=== PATIENT | female | born 1955 | race Two or more races ===

== ENCOUNTER 2017-02-18 11:49 | Emergency (ER) | payer MEDICAID ==
[~2017-02-18] VITALS: Ht 160 cm; Wt 70.8 kg
[2017-02-18 11:53] VITALS: BP 198/124
== END 2017-02-18 12:33 | disposition home or self-care (01) ==
LOC: ER 11:49
DX: E11.9 Type 2 diabetes mellitus without complications (principal); Z76.0 Encounter for issue of repeat prescription

== ENCOUNTER 2017-03-07 10:36 | Emergency (ER) | payer MEDICAID ==
[~2017-03-07] VITALS: Ht 160 cm; Wt 56.2 kg
[2017-03-07 11:21] VITALS: BP 171/100
== END 2017-03-07 11:38 | disposition home or self-care (01) ==
LOC: ER 10:36
DX: I10 Essential (primary) hypertension (principal); E78.00 Pure hypercholesterolemia, unspecified; G89.29 Other chronic pain; M54.9 Dorsalgia, unspecified; Z76.0 Encounter for issue of repeat prescription; E11.9 Type 2 diabetes mellitus without complications